=== PATIENT | female | born 1965 | race African-American/Black ===

== ENCOUNTER 2019-09-08 18:14 | Inpatient (IN) | payer MEDICAID ==
[~2019-09-08] VITALS: Ht 160 cm; Wt 74.8 kg
--- NOTE | 2019-09-08 18:20 | NUR ---
ADRIANA PADRON TO CHAIR Ernandez
[2019-09-08 18:21] VITALS: BP 210/130
--- NOTE | 2019-09-08 18:32 | NUR ---
PT AMBULATED TO BED 12 FROM CHAIR C.
--- NOTE | 2019-09-08 18:36 | NUR ---
54/F PRESENTS TO ED, C/O CP X1.5 HR. REPORTS MILD SOB. REPORTS COUGH. DENIES FEVER. PT AWAKE AND ALERT, SKIN NORMAL COLOR WARM AND DRY, SPO2 98% ON RA, RR 24 EVEN AND MILDLY LABORED. LUNG SOUNDS WITH MILD RHONCHI BL. HR 81 EVEN AND REGULAR. HX CHF, DM, HTN, HLD RX NONCOMPLIANT
[2019-09-08] MEDS ORDERED: SODIUM CHLORIDE FLUSH 10 ML SYR IVF STA (18:47)
[2019-09-08] MEDS ORDERED: NITROGLYCERIN 0.4 MG TAB SL STA (18:47)
--- NOTE | 2019-09-08 19:17 | NUR ---
EKG PERFORMED AT BED SIDE
[2019-09-08 19:25] LABS: BASOPHILS % (AUTO) 0.4 % (0.0-2.0); EOSINOPHILS # (AUTO) 0.1 K/uL (0-0.4); EOSINOPHILS % (AUTO) 1.4 % (0.0-4.0); HEMATOCRIT 39.7 % (36-48); HEMOGLOBIN 12.9 g/dL (12.0-16.0); LYMPHOCYTES # (AUTO) 2.6 K/uL (2.5-16.5); LYMPHOCYTES % (AUTO) 41.3 % (20.5-51.1); MEAN CORPUSCULAR HEMOGLOBIN 28 pg (27-31); MEAN CORPUSCULAR HGB CONC 33 g/dL (33-37); MEAN CORPUSCULAR VOLUME 85.2 fL (80-94); MONOCYTES # (AUTO) 0.7 K/uL (0.8-1.0); NEUTROPHILS # (AUTO) 2.9 K/uL (1.8-7.7); NEUTROPHILS % (AUTO) 45.9 % (42.2-75.2); PLATELET COUNT (AUTO) 320 K/uL (140-450); RED BLOOD CELL COUNT(AUTO) 4.66 MIL/uL (4.20-5.40); RED CELL DISTRIBUTION WIDTH 14.3 % (11.6-13.7); WHITE BLOOD COUNT (AUTO) 6.2 K/uL (4.8-10.8)
[2019-09-08 19:50] LABS: ANION GAP 15.4 (8-16); CARBON DIOXIDE 27.8 mmol/L (21-32); CREATININE 1.1 mg/dL (0.6-1.3); POTASSIUM 3.2 mmol/L (3.5-5.1)
[2019-09-08 19:55] LABS: ALBUMIN 3.4 g/dL (3.4-5.0); TOTAL BILIRUBIN 0.4 mg/dL (0.0-1.0)
--- NOTE | 2019-09-08 20:00 | NUR ---
RECEIVED REPORT FROM ZAK WIN. [facility] AT THIS TIME.
[2019-09-08] MEDS ORDERED: NITROGLYCERIN 2% 1 GM PKT TP ONE (20:10)
[2019-09-08] MEDS ORDERED: ASPIRIN 325 MG TAB PO ONE (20:10)
[2019-09-08] MEDS ORDERED: hydrALAZINE 20 MG/ML VIAL IVP ONE (20:15)
[2019-09-08] MEDS ORDERED: ENALAPRILAT 2.5 MG/2 ML VIAL IVP ONE (20:15)
--- NOTE | 2019-09-08 20:20 | NUR ---
PT BP 216/108, PT C/O HEADACHE. DR. TOMAS MADE AWARE.
--- NOTE | 2019-09-08 21:20 | NUR ---
PT BP DECREASED TO 150/83. WILL CONTINUE TO MONITOR.
[2019-09-08] MEDS ORDERED: NACL 0.9% 500 ML IV ONE (22:00)
--- NOTE | 2019-09-08 22:00 | NUR ---
PT DP DROPPED TO 98/48. PT REPORT FEELING DIZZY. DR. TOMAS MADE AWARE. ORDERS RECEIVED AND IMPLEMENTED.
--- NOTE | 2019-09-08 22:15 | NUR ---
NITROBID PATCH REMOVED PER PT REQUEST. PT STATED "IT'S MAKING ME DIZZY."
--- NOTE | 2019-09-08 22:23 | NUR ---
PT BP 116/58. PT LYING SUPINE. ALL OTHER VITALS STABLE. PT POSTIONED FOR COMORT. WILL CONTINUE TO MONITOR.
--- NOTE | 2019-09-08 22:40 | NUR ---
Patient will be admitted to care of Dr. Boyd. Admited to [facility]. Will go to room 119B Belongings list completed. Report to ZAK Holguin. Shanice of care at this time.
[2019-09-08 22:50] VITALS: BP 148/70
--- NOTE | 2019-09-08 22:50 | NUR ---
RECEIVED PT FROM ER VIA KORIN , REPORT GIVEN AT BED SIDE PT IS AAOX4 DENIES ANY PAIN AT THIS TIME, ON TELEMETRY SR , IV ON LEFT AC INFUSING WELL, SKIN IS INTACT, SWAB MRSA PROTOCOL AND SENT TO LAB PT IS ;ORIENTED TO THE FLOOR CALL LIGHT WITHIN REACH
[2019-09-08] MEDS: NACL 0.9% 1,000 ML IV SCH (22:57)
[2019-09-08] MEDS ORDERED: ZOLPIDEM 5 MG TAB PO PRN (23:00)
[2019-09-08] MEDS ORDERED: ONDANSETRON 4 MG/2 ML VIAL IM/IVP PRN (23:00)
[2019-09-08] MEDS ORDERED: MORPHINE SULFATE 2 MG/ML SYR IVP PRN (23:00)
[2019-09-08] MEDS ORDERED: DOCUSATE SODIUM 100 MG GELCAP PO PRN (23:00)
[2019-09-08] MEDS ORDERED: LORazepam 2 MG/ML VIAL IM/IVP PRN (23:00)
[2019-09-08] MEDS ORDERED: ACETAMINOPHEN 325 MG TAB PO PRN (23:00)
[2019-09-08] MEDS ORDERED: HYDROcodone/APAP 5/325 MG 1 TAB TAB PO PRN (23:00)
--- NOTE | 2019-09-08 23:20 | NUR ---
PT STARVING AND FOOD IS PROVIDED;, PT VERBALIZED TO FEEL BETTER AND BP IS MORE ON CONTROL 148/70 DENIES ANY CHEST PAIN
[2019-09-08 23:34] LABS: PROTHROMBIN TIME 9.9 secs (10.8-13.4)
[2019-09-08 23:35] LABS: CHOL/HDL RATIO 2.4 (1-4.5); MAGNESIUM 1.9 mg/dL (1.8-2.4); PHOSPHORUS 4.1 mg/dL (2.5-4.9); THYROID STIMULATING HORMONE 0.67 uIU/mL (0.34-3.74)
[2019-09-09] VITALS: BP 136/58
[2019-09-09] MEDS ORDERED: MORPHINE SULFATE 2 MG/ML SYR IV PRN (00:05)
[2019-09-09] MEDS ORDERED: NITROGLYCERIN 0.4 MG TAB SL PRN (00:05)
[2019-09-09] MEDS ORDERED: POTASSIUM CHLORIDE 10 MEQ TABER PO SCH ×2 (00:30→16:00)
[2019-09-09] MEDS ORDERED: INSULIN LISPRO SLIDING SCALE 100 UNITS/ML VIAL SUBQ PRN (01:30)
[2019-09-09] MEDS ORDERED: DEXTROSE 50% 50 ML SYR IVP PRN (01:30)
--- NOTE | 2019-09-09 02:00 | NUR ---
PT ON TELMETRY SR VOIDING WELL URINE SAMPLE SENT TO LAB
[2019-09-09 03:03] LABS: APPEARANCE,URINE SL CLOUDY (CLEAR); BILIRUBIN,URINE NEGATIVE (NEGATIVE); BLOOD, URINE NEGATIVE (NEGATIVE); COLOR,URINE YELLOW (YELLOW); LEUKOCYTE ESTERASE ,URINE NEGATIVE (NEGATIVE); NITRITE, URINE NEGATIVE (NEGATIVE); UGLUCOSE NEGATIVE (NEGATIVE)
[2019-09-09 03:09] LABS: BARBITURATE, URINE NEG. ng/ml (NEG <=200); BENZODIAZEPINE, URINE NEG. ng/mL (NEG <=200); CANNABINOID, URINE POS. ng/mL (NEG <=50); COCAINE, URINE POS. ng/mL (NEG <=300); OPIATE, URINE NEG. ng/mL (NEG <=2000); PHENCYCLIDINE SCREEN,URINE NEG. ng/mL (NEG <=25)
[2019-09-09] MEDS: NACL 0.9% 1,000 ML IV SCH (03:16)
[2019-09-09 04:00] VITALS: BP 156/74
--- NOTE | 2019-09-09 04:00 | NUR ---
PT REMAIN STABLE NOT PAIN URINE TEST POSITIVE FOR COCAINE, ON TELEMETRY SR
--- NOTE | 2019-09-09 05:20 | NUR ---
SPONGE BATH GIVEN LINEN CHANGED ;, REPOSITIONED, IV ON LEFT AC INFUSIG WELL , ON TELEMETRY SR DENIES ANY PAIN
[2019-09-09] MEDS ORDERED: METOPROLOL 50 MG TAB PO SCH (06:00)
[2019-09-09 06:25] LABS: BASOPHILS % (AUTO) 0.3 % (0.0-2.0); EOSINOPHILS # (AUTO) 0.1 K/uL (0-0.4); EOSINOPHILS % (AUTO) 1.3 % (0.0-4.0); HEMATOCRIT 36.9 % (36-48); HEMOGLOBIN 12.1 g/dL (12.0-16.0); LYMPHOCYTES # (AUTO) 2.9 K/uL (2.5-16.5); MEAN CORPUSCULAR HEMOGLOBIN 28 pg (27-31); MEAN CORPUSCULAR HGB CONC 33 g/dL (33-37); MEAN CORPUSCULAR VOLUME 84.9 fL (80-94); MONOCYTES # (AUTO) 0.6 K/uL (0.8-1.0); MONOCYTES % (AUTO) 8.9 % (1.7-9.3); NEUTROPHILS # (AUTO) 3.5 K/uL (1.8-7.7); NEUTROPHILS % (AUTO) 49.5 % (42.2-75.2); PLATELET COUNT (AUTO) 311 K/uL (140-450); RED BLOOD CELL COUNT(AUTO) 4.35 MIL/uL (4.20-5.40); RED CELL DISTRIBUTION WIDTH 15.1 % (11.6-13.7); WHITE BLOOD COUNT (AUTO) 7.2 K/uL (4.8-10.8)
[2019-09-09] MEDS: BLOOD GLUCOSE MONITORING 1 DEV DEV FS SCH ×4 (06:25→21:29)
--- NOTE | 2019-09-09 06:28 | NUR ---
BLOOD SUGAR TEST 124, PT REMAIN STABLE , DENIES ANY PAIN, PT WILL BE ENDORSED TO Dy shift nurse FOR CONTINUE OF CARE
[2019-09-09 06:48] LABS: ANION GAP 13.1 (8-16); CARBON DIOXIDE 25.2 mmol/L (21-32); POTASSIUM 3.3 mmol/L (3.5-5.1)
--- NOTE | 2019-09-09 07:19 | NUR ---
PATIENT ASSESSED. PATIENT STATES SHE IS BREATHING FINE. BREATH SOUNDS ARE CLEAR W/ NO RESPIRATORY DISTRESS NOTED AT THIS TIME. PATIENT ON RA. WILL MONITOR.
--- NOTE | 2019-09-09 07:20 | NUR ---
RECEIVED PT FROM NIGHT NURSE. PT WITH EYES CLOSED, AROUSABLE TO SPEECH, AAOX4. PT STATES FEELING HUNGRY. RESPIRATIONS EVEN AND UNLABORED ON ROOM AIR, CLEAR BREATH SOUNDS. SKIN INTACT. IV IN PLACE L AC 20G PATENT INTACT AND ASYMPTOMATIC INFUSING PER ORDER. NO DISTRESS NOTED. PT DENIES PAIN AT THIS TIME. BED IN LOW POSITION. SAFETY MEASURES IN PLACE. CALL LIGHT WITHIN REACH. WILL CONTINUE TO MONITOR.
[2019-09-09 08:00] VITALS: BP 168/92
--- NOTE | 2019-09-09 08:26 | NUR ---
PATIENT HAS BEEN SCREENED AND CATEGORIZED HIGH NUTRITION RISK. PATIENT WILL BE SEEN WITHIN 1-2 DAYS OF ADMISSION. 09/09/19-09/10/[address]
[2019-09-09] MEDS ORDERED: ENALAPRIL 2.5 MG TAB PO SCH (09:00)
[2019-09-09] MEDS ORDERED: METOPROLOL 25 MG TAB PO SCH (09:00)
[2019-09-09] MEDS: ASPIRIN 81 MG TAB.CHEW PO SCH (09:24)
--- NOTE | 2019-09-09 09:28 | NUR ---
MEDICATIONS ADMINISTERED PER ORDER. PT TOLERATED WELL. NO DISTRESS NOTED. WILL CONTINUE TO MONITOR.
--- NOTE | 2019-09-09 11:14 | NUR ---
BLOOD GLUCOSE MONITORED AT THIS TIME. RESULT 103. NO COVERAGE NEEDED. PT DENIES PAIN. WILL CONTINUE TO MONITOR.
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
[2019-09-09 12:00] VITALS: BP 182/80
--- NOTE | 2019-09-09 12:02 | NUR ---
DC PLANNING 54 YRS OLD FEMALE WAS ADMITTED FROM HOME WITH A DX OF CHF . PT A/OX 4 , PT HAS A HX OF CHF DM HTN AND POLYSUBSTANCE ABUSE . PT STATED SHE IS HOMELESS SS WILL FOLLOW UP. NITROGLYCERIN 0.4 MG SUBLINGUAL , ASPIRIN 81 MG PO GIVEN . CARDIOLOGY CONSULT WITH DR VILLAGOMEZ AND ECHO ORDERED . DC PLAN TO PROVIDE HOMELESS MCC ,FOOD AND CLOTH FOR A SAFE DISCHARGE UPON PT AGREEMENT.
--- NOTE | 2019-09-09 13:35 | NUR ---
09/09/19 RD INITIAL ASSESSMENT COMPLETED PLEASE REFER TO NUTRITION ASSESSMENT UNDER CARE ACTIVITY FOR ESTIMATED NUTRITIONAL NEEDS. 1. CONTINUE CARDIAC, 60G CCHO DIET TOLERATED 2. NUTRITION EDUCATION ON HTN AND DM-II WAS GIVEN 3. RD TO FOLLOW-UP 5-7 DAYS, LOW RISK ROYA LICEA, RD
--- NOTE | 2019-09-09 14:07 | NUR ---
MEDICATIONS ADMINISTERED PER ORDER. PT TOLERATED WELL. NO DISTRESS NOTED. DENIES PAIN. WILL CONTINUE TO MONITOR.
[2019-09-09 16:00] VITALS: BP 188/100
--- NOTE | 2019-09-09 16:30 | NUR ---
VITAL SIGNS MONITORED AT THIS TIME. NO DISTRESS NOTED. PT DENIES PAIN. SAFETY MEASURES IN PLACE. WILL CONTINUE TO MONITOR.
[2019-09-09] MEDS ORDERED: NIFEdipine 30 MG TABER PO SCH (17:30)
[2019-09-09] MEDS ORDERED: hydrALAZINE 20 MG/ML VIAL IVP SCH (17:30)
[2019-09-09] MEDS ORDERED: LISINOPRIL 20 MG TAB PO SCH (17:30)
--- NOTE | 2019-09-09 18:06 | NUR ---
MEDICATIONS ADMINISTERED PER ORDER. PT TOLERATED WELL. NO DISTRESS NOTED. SAFETY MEASURES IN PLACE. WILL CONTINUE TO MONITOR.
[2019-09-09] MEDS ORDERED: hydrALAZINE 20 MG/ML VIAL IVP PRN (18:40)
--- NOTE | 2019-09-09 19:21 | NUR ---
REPORT GIVEN TO NIGHT NURSE FOR CONTINUITY OF CARE.
--- NOTE | 2019-09-09 19:25 | NUR ---
PT AT BED EYES CLOSED, BREATHING REGULARLY ON ROOM AIR, PERRLA 3MM, BRISK, PT CALM, COOPERATIVE, HEART RATE REGULAR, SR ON MONITOR, S1S2 PRESENT, CAP REFILL <3S, PULSES 2+ BILATERAL UPPER AND LOWER EXTREMITIES, ABDOMEN, SOFT, ROUND, NONDISTENDED, NONTENDER, BOWEL SOUNDS ACTIVE IN ALL QUADRANTS, BLADDER, SOFT, ROUND, NONDISTENDED, NONTENDER, SKIN INTACT, WARM, DRY, PT HAS GENERALIZED WEAKNESS, PT HAS PERIPHERAL IV AT LEFT AC, 20 GAUGE, RUNNING NS AT 10 ML/HR. HOB 30 DEGREES, SIDE RAILS UP X2, BED AT LOWEST POSITION.
[2019-09-09 20:00] VITALS: BP 159/90
[2019-09-09] MEDS: SIMVASTATIN 20 MG TAB PO SCH (20:44)
--- NOTE | 2019-09-09 21:45 | NUR ---
MEDICATIONS GIVEN. PT AT STABLE CONDITION AT THIS TIME, AWAKE, COOPERATIVE. PT TOLERATED PROCEDURE WELL
[2019-09-10] VITALS: BP 189/100
--- NOTE | 2019-09-10 00:15 | NUR ---
PT AT BED EYES CLOSED, BREATHING REGULARLY, VS WITHIN NORMAL LIMITS, ASSISTED PT TO BATHROOM. PT VOIDED WITH NO DIFFICULTY, ASSISTED BACK TO BED, WILL CONTINUE TO MONITOR.
--- NOTE | 2019-09-10 02:30 | NUR ---
PT AT BED EYES CLOSED, BREATHING REGULARLY ON ROOM AIR, WILL CONTINUE TO MONITOR.
[2019-09-10 04:00] VITALS: BP 123/69
--- NOTE | 2019-09-10 04:25 | NUR ---
VS CHECKED, WITHIN NORMAL LIMITS, PT AT BED EYES CLOSED, BREATHING REGULARLY, WILL CONTINUE TO MONITOR
[2019-09-10] MEDS: BLOOD GLUCOSE MONITORING 1 DEV DEV FS SCH ×4 (06:45→20:46)
[2019-09-10 06:46] LABS: BASOPHILS % (AUTO) 0.2 % (0.0-2.0); EOSINOPHILS # (AUTO) 0.1 K/uL (0-0.4); EOSINOPHILS % (AUTO) 1.2 % (0.0-4.0); HEMATOCRIT 37.7 % (36-48); HEMOGLOBIN 12.2 g/dL (12.0-16.0); LYMPHOCYTES # (AUTO) 2.2 K/uL (2.5-16.5); LYMPHOCYTES % (AUTO) 34.9 % (20.5-51.1); MEAN CORPUSCULAR HEMOGLOBIN 28 pg (27-31); MEAN CORPUSCULAR HGB CONC 32 g/dL (33-37); MEAN CORPUSCULAR VOLUME 85.8 fL (80-94); MONOCYTES # (AUTO) 0.5 K/uL (0.8-1.0); MONOCYTES % (AUTO) 8.3 % (1.7-9.3); NEUTROPHILS # (AUTO) 3.6 K/uL (1.8-7.7); NEUTROPHILS % (AUTO) 55.4 % (42.2-75.2); PLATELET COUNT (AUTO) 310 K/uL (140-450); RED CELL DISTRIBUTION WIDTH 14.7 % (11.6-13.7); WHITE BLOOD COUNT (AUTO) 6.4 K/uL (4.8-10.8)
[2019-09-10 07:12] LABS: MAGNESIUM 1.7 mg/dL (1.8-2.4); PHOSPHORUS 3.2 mg/dL (2.5-4.9)
[2019-09-10 07:14] LABS: ANION GAP 12.3 (8-16); CARBON DIOXIDE 23.5 mmol/L (21-32); CREATININE 0.9 mg/dL (0.6-1.3); POTASSIUM 3.8 mmol/L (3.5-5.1)
--- NOTE | 2019-09-10 07:35 | NUR ---
CHANGE OF SHIFT REPORT GIVEN TO AM NURSE. PT AT BED AWAKE AND ALERT, ANSWERS QUESTIONS. PT AT STABLE CONDITION AT THIS TIME.
--- NOTE | 2019-09-10 07:36 | NUR ---
REPORT RECEIVED FROM OPHTHALMIC DISPENSER NURSE AT BEDSIDE FOR CONTINUITY OF CARE. PT IS AOX4, RESPIRATIONS EVEN AND UNLABORED ON ROOM AIR. NO S/S OF DISTRESS OR SOB NOTED. PT SKIN INTACT, PT DENIES PAIN AT THIS TIME, IV SITE INTACT, ASYMPTOMATIC AND PATENT, INFUSING NS AT 10 CC/HR. PATIENT AMBULATES. UPDATED BOARD. UPDATED PATIENT WITH PLAN OF CARE. SHE VERBALIZED UNDERSTANDING. CALL LIGHT WITHIN REACH, WILL CONTINUE TO MONITOR PATIENT.
[2019-09-10 08:00] VITALS: BP 163/72
--- NOTE | 2019-09-10 08:05 | NUR ---
PATIENT C/O OF PAIN AT IV SITE. IV LEAKING, PATIENT REQUESTED FOR IV TO BE REMOVED. IV REMOVED, IV CATHETER INTACT. MINIMAL BLEEDING NOTED. PATIENT AGREEABLE TO INSERTION OF NEW IV AT A LATER TIME. PATIENT FINISHING UP HER BREAKFAST. NO COMPLAINTS AT THIS TIME. CALL LIGHT WITHIN REACH. WILL CONTINUE TO MONITOR PATIENT.
[2019-09-10] MEDS: LISINOPRIL 20 MG TAB PO SCH (09:15)
[2019-09-10] MEDS: ASPIRIN 81 MG TAB.CHEW PO SCH (09:15)
[2019-09-10] MEDS: NIFEdipine 60 MG TABER PO SCH (09:15)
--- NOTE | 2019-09-10 09:15 | NUR ---
ORDERED MEDICATIONS GIVEN. PATIENT TOLERATED THEM WELL. ALL NEEDS MET AT THIS TIME. PATIENT HAS NO COMPLAINTS. CALL LIGHT WITHIN REACH. WILL CONTINUE TO MONITOR PATIENT.
--- NOTE | 2019-09-10 11:35 | NUR ---
BLOOD SUGAR 108, NO COVERAGE NEEDED. PATIENT HAS NO COMPLAINTS AT THIS TIME. ALL NEEDS MET. CALL LIGHT WITHIN REACH. WILL CONTINUE TO MONITOR PATIENT.
[2019-09-10 11:38] VITALS: BP 157/70
--- NOTE | 2019-09-10 15:15 | NUR ---
PATIENT RESTING IN BED COMFORTABLY, RESPIRATIONS EVEN AND UNLABORED ON ROOM AIR. CALL LIGHT WITHIN REACH, WILL CONTINUE TO MONITOR PATIENT.
[2019-09-10] MEDS ORDERED: metFORMIN 500 MG TAB PO SCH (15:45)
[2019-09-10] MEDS ORDERED: ALBUTEROL SULFATE/IPRATROPIU 3 ML SOL IH PRN (15:45)
[2019-09-10 16:00] VITALS: BP 135/67
[2019-09-10] MEDS ORDERED: MAGNESIUM CHLORIDE 64 MG TABEC PO SCH (16:20)
--- NOTE | 2019-09-10 16:45 | NUR ---
BLOOD SUGAR 129, NO COVERAGE NEEDED. PT C/O OF SOB, RT CALLED FOR BREATHING TREATMENT. PATIENT HAD LEFT FOOT XRAYED, WILL WAIT FOR RESULTS. PATIENT AWARE OF SCHEDULED MEDICATIONS AND INDICATIONS. ALL QUESTIONS ANSWERED ABOUT MAG OX AND METFORMIN. WILL CONTINUE TO MONITOR PATIENT.
--- NOTE | 2019-09-10 17:00 | NUR ---
ORDERED MEDICATIONS GIVEN. PATIENT TOLERATED THEM WELL. ALL NEEDS MET AT THIS TIME. PATIENT HAS NO COMPLAINTS. CALL LIGHT WITHIN REACH. WILL CONTINUE TO MONITOR PATIENT.
[2019-09-10] MEDS: NACL 0.9% 1,000 ML IV SCH (17:06)
--- NOTE | 2019-09-10 19:16 | NUR ---
REPORT GIVEN TO ART HISTORY PROFESSOR NURSE, JOLLY, AT BEDSIDE FOR CONTINUITY OF CARE. PATIENT IN STABLE CONDITION.
--- NOTE | 2019-09-10 19:20 | NUR ---
PT. AWAKE AND ALERT. WATCHING TV. NO COMPLAINTS DONE. ABLE TO VERBALIZE WITH ME GOOD. TELEMETRY MONITORING. CARE PLANS FOR THE NIGHT DISCUSSED WITH HER. IVF SITE INTACT AND NO INFILTRATION. WILL CONTINUE WITH CARE FOR THE NIGHT.
--- NOTE | 2019-09-10 19:58 | NUR ---
RECEIVED PATIENT ON ROOM AIR, PULSE OX SAT 100%. PATIENT DENIES ANY SOB. PRN HHN NOT INDICATED AT THIS TIME. PT MADE AWARE OF ORDERED MEDICATION FREQUENCY. NO ACUTE RESPIRATORY DISTRESS NOTED. WILL CONTINUE TO MONITOR.
[2019-09-10 20:00] VITALS: BP 145/75
[2019-09-10] MEDS: SIMVASTATIN 20 MG TAB PO SCH (20:50)
--- NOTE | 2019-09-10 21:00 | NUR ---
PT. SLEEPING AT THIS TIME. CALL LIGHT WITH IN REACH. TELEMETRY MONITORING. NO RESTLESSNESS.
--- NOTE | 2019-09-10 22:00 | NUR ---
PT. ABLE TO TAKE MEDICATION P.O. WELL. WOKE UP EASILY WHEN TOUCHED FOR MEDICATION. NO COMPLAINTS DONE. TELEMETRY MONITORING. CALL LIGHT WITH IN REACH AND REMINDED TO USE IT IF SHE NEEDS HELP. "OK
--- NOTE | 2019-09-11 00:06 | NUR ---
SLEEPING AT THIS TIME. NO SOB. NO COMPLAINTS.TELEMETRY MONITORING.
[2019-09-11 00:44] VITALS: BP 165/84
--- NOTE | 2019-09-11 00:45 | NUR ---
VITAL SIGN TAKEN AND NOTED PT. JUST CAME BACK FROM RESTROOM . DENIES ANY PAIN. TELEMETRY MONITORING. CALL LIGHT WITH IN REACH.
--- NOTE | 2019-09-11 02:15 | NUR ---
NOTED PT. AWAKE AND STILL WATCHING TV AT THIS TIME. ENCOURAGED TO GO BACK TO SLEEP RT NIGHT TIME. "OK".
[2019-09-11 04:00] VITALS: BP 113/68
--- NOTE | 2019-09-11 04:04 | NUR ---
PT. SLEEPING WELL. NO RESTLESSNESS. CALL LIGHT AT BEDSIDE WITH IN REACH. TELEMETRY MONITORING. IVF SITE INTACT AND NO NOTED INFILTRATION.
[2019-09-11] MEDS: BLOOD GLUCOSE MONITORING 1 DEV DEV FS SCH ×2 (05:25→12:21)
--- NOTE | 2019-09-11 05:50 | NUR ---
BLOOD SUGAR CHECK FOR AM IS 122. NO INSULIN COVERAGE PROVIDED. ABLE TO VERBALIZE NEEDS WELL. PROVIDED WITH SNACK REQUESTED AFTER BLOOD SUGAR CHECK . SLEPT WELL THIS SHIFT. NO COMPLAINTS DONE.
--- NOTE | 2019-09-11 07:20 | NUR ---
Received report from overnight stocker nurse. Pt is in bed in stable condition. Call light in reach.
--- NOTE | 2019-09-11 07:24 | NUR ---
ENDORSED TO AM RN FOR CONTINUITY OF CARE .SLEEPING. REFUSED TO WAKE UP TO BE INTRODUCED. TELEMETRY MONITORING. CALL LIGHT WITH IN REACH AT ALL TIMES.
--- NOTE | 2019-09-11 07:30 | NUR ---
Received report from overnight stocker nurse. Pt is in bed in stable condition. Call light in reach.
[2019-09-11 08:00] VITALS: BP 154/92
[2019-09-11] MEDS ORDERED: metFORMIN 500 MG TAB PO SCH (08:00)
[2019-09-11] MEDS: NIFEdipine 60 MG TABER PO SCH (08:06)
[2019-09-11] MEDS: ASPIRIN 81 MG TAB.CHEW PO SCH (08:06)
[2019-09-11] MEDS: LISINOPRIL 20 MG TAB PO SCH (08:07)
[2019-09-11 08:57] LABS: BASOPHILS % (AUTO) 0.5 % (0.0-2.0); EOSINOPHILS # (AUTO) 0.1 K/uL (0-0.4); EOSINOPHILS % (AUTO) 1.1 % (0.0-4.0); HEMATOCRIT 38.1 % (36-48); HEMOGLOBIN 12.4 g/dL (12.0-16.0); LYMPHOCYTES # (AUTO) 1.8 K/uL (2.5-16.5); MEAN CORPUSCULAR HEMOGLOBIN 28 pg (27-31); MEAN CORPUSCULAR HGB CONC 33 g/dL (33-37); MEAN CORPUSCULAR VOLUME 85.4 fL (80-94); MONOCYTES # (AUTO) 0.6 K/uL (0.8-1.0); MONOCYTES % (AUTO) 8.9 % (1.7-9.3); NEUTROPHILS # (AUTO) 4.4 K/uL (1.8-7.7); NEUTROPHILS % (AUTO) 63.5 % (42.2-75.2); PLATELET COUNT (AUTO) 311 K/uL (140-450); RED BLOOD CELL COUNT(AUTO) 4.46 MIL/uL (4.20-5.40); RED CELL DISTRIBUTION WIDTH 14.8 % (11.6-13.7); WHITE BLOOD COUNT (AUTO) 6.9 K/uL (4.8-10.8)
[2019-09-11] MEDS ORDERED: MAGNESIUM CHLORIDE 64 MG TABEC PO SCH (09:00)
--- NOTE | 2019-09-11 09:30 | NUR ---
Pt is resting in bed, pt is in stable condition, no complaints of pain, no distress noted, call light in reach.
[2019-09-11 09:37] LABS: ANION GAP 15.2 (8-16); CARBON DIOXIDE 22.6 mmol/L (21-32); CREATININE 0.9 mg/dL (0.6-1.3); POTASSIUM 3.8 mmol/L (3.5-5.1)
[2019-09-11 09:50] LABS: MAGNESIUM 1.8 mg/dL (1.8-2.4); PHOSPHORUS 3.6 mg/dL (2.5-4.9)
[2019-09-11 12:00] VITALS: BP 174/95
--- NOTE | 2019-09-11 12:30 | NUR ---
Pt is resting in bed, pt in stable condition, no complaints of pain, no distress noted, pt ambulated to restroom, tolerated well, call light in reach
[2019-09-11] MEDS ORDERED: ADA60 PO (14:55)
[2019-09-11] MEDS ORDERED: LISI-420 PO (14:55)
--- NOTE | 2019-09-11 15:00 | NUR ---
Pt is resting in bed. No signs of distress noted. Call light in reach
[2019-09-11 15:11] VITALS: BP 161/86
--- NOTE | 2019-09-11 16:00 | NUR ---
Pt was discharged today at 1600. Pt signed discharged instructions. Pt's walker was taken with patient. Gave patient instructions and asked patient to follow up with PCP as requested by Dr. Artis. Pt walked with steady gait. no complains of pain upon discharge. No distress noted. Pt's belongings with patient. IV removed from patient. Catheter intact. Checked IV site. No active bleeding. Pt's ID removed. Pt is homeless. Provided patient with homeless resources. Accompanied patient to foreign student adviser. Charge nurse notified.
== END 2019-09-11 16:16 | disposition home or self-care (01) | DRG 816 ==
LOC: MED 18:14 → MTU 22:02
PROVIDERS: ADMIT General Practice; ATTEND General Practice
DX: T40.5X1A Poisoning by cocaine, accidental (unintentional), initial encounter (principal); E87.0 Hyperosmolality and hypernatremia; D68.59 Other primary thrombophilia; E83.42 Hypomagnesemia; E87.5 Hyperkalemia; I11.0 Hypertensive heart disease with heart failure; I50.9 Heart failure, unspecified; I16.1 Hypertensive emergency; F12.90 Cannabis use, unspecified, uncomplicated; E11.9 Type 2 diabetes mellitus without complications; I07.1 Rheumatic tricuspid insufficiency; I27.21 Secondary pulmonary arterial hypertension; R07.9 Chest pain, unspecified; F14.90 Cocaine use, unspecified, uncomplicated; E78.00 Pure hypercholesterolemia, unspecified; I25.2 Old myocardial infarction; Z86.73 Personal history of transient ischemic attack (TIA), and cerebral infarction without residual deficits; Z88.1 Allergy status to other antibiotic agents; Z88.0 Allergy status to penicillin; Z59.0 Homelessness; Z56.0 Unemployment, unspecified; Y92.89 Other specified places as the place of occurrence of the external cause; Z91.19 Patient's noncompliance with other medical treatment and regimen; Z71.51 Drug abuse counseling and surveillance of drug abuser
CPT/HCPCS: 36415; 71045; 73620; 80048; 80053; 80305; 81003; 82948; 83036; 83690; 83735; 83880; 84100; 84134; 84443; 84484; 85025; 85610; 85730; 87081; 93005; 94640; 96361; 96374; 99285; J0360; J1644; J3490; J7030; J7620; Q0092